=== PATIENT | male | born 1995 | race Caucasian/White ===

== ENCOUNTER 2016-05-01 20:04 | Emergency (ER) | payer BC ==
[2016-05-01] MEDS ORDERED: 0.9 % SODIUM CHLORIDE 1,000 ML BAG IV ONE (20:38)
[2016-05-01] MEDS ORDERED: ONDANSETRON HCL IV 4 MG/2 ML VIAL IV ONE (20:38)
--- NOTE | 2016-05-01 20:44 | Emergency Department Record ---
History of Present Illness - General Chief Complaint: Abdominal Pain Stated Complaint: ABD PAINS Time Seen by Provider: 05/01/16 20:38 Source: Patient Mode of Arrival: Ambulatory Limitations: No limitations - History of Present Illness Initial Comments: 20 yo male presents with abdominal discomfort, nausea and loose stools this week. The pain comes and goes. It seems to be mostly on the right side in the upper abdomen. No fevers. No rash. He has pain with eating. No surgical history. No hematuria. He denies vomiting. MD Complaint: Abdominal pain Onset/Timin -: Days(s) Location: RUQ Radiation: RLQ Migration to: No migration Quality: Burning Consistency: Intermittent, Getting worse Improves With: Nothing Worsens With: Eating Associated Symptoms: Diarrhea, Nausea - Related Data Previous Rx's Medication Instructions Recorded Ondansetron [Zofran Odt] 4 mg PO Q8H #10 tab.rapdis 05/01/16 Allergies Allergy/AdvReac Type Severity Reaction Status Date / Time codeine AdvReac ABDOMINAL Verified 02/12/14 22:47 PAIN Travel Screening - Travel/Exposure Within Last 30 Days Have you traveled within the last 30 days?: No - Travel Symptoms Symptom Screening: None Review of Systems Constitutional: Reports: Chills, Malaise. Denies: Fever, Night sweats, Weakness Eyes: Denies: Eye discharge, Eye pain, Photophobia, Vision change ENT: Denies: Congestion, Epistaxis, Throat pain Respiratory: Denies: Cough, Dyspnea, Hemoptysis, Stridor Cardiovascular: Denies: Chest pain, Palpitations, Syncope Endocrine: Denies: Fatigue Gastrointestinal: Reports: As per HPI, Abdominal pain, Diarrhea, Nausea. Denies : Constipation, Hematemesis, Hematochezia, Melena, Vomiting Genitourinary: Denies: Dysuria, Frequency, Hematuria Musculoskeletal: Denies: Arthralgia, Back pain, Joint swelling, Myalgia, Neck pain Skin: Denies: Bruising, Change in color, Rash Neurological: Denies: Confusion, Headache Psychiatric: Denies: Anxiety Hematological/Lymphatic: Denies: Blood Clots, Easy bleeding, Easy bruising Past Medical History - SOCIAL HISTORY Smoking Status: Light tobacco smoker (<10/day) - RESPIRATORY Hx Respiratory Disorders: No - CARDIOVASCULAR Hx Cardio Disorders: No - NEURO Hx Neuro Disorders: No - GI Hx GI Disorders: No - Hx Genitourinary Disorders: No - ENDOCRINE Hx Endocrine Disorders: No - MUSCULOSKELETAL Hx Musculoskeletal Disorders: No - PSYCH Hx Psych Problems: No - HEMATOLOGY/ONCOLOGY Hx Hematology/Oncology Disorders: No Family Medical History Any Significant Family History?: Yes Family Hx Comment (NOT TO BE USED IN PLACE OF ITEMS BELOW): Grandmother w/ALS- Physical Exam - General General Appearance: Alert, Oriented x3, Cooperative, No acute distress Limitations: No limitations - Head Head exam: Normal inspection - Eye Eye exam: Normal appearance, PERRL. negative: Conjunctival injection, Scleral icterus - ENT ENT exam: Normal exam, Mucous membranes moist, Normal external ear exam, Normal orophraynx Ear exam: Normal external inspection. negative: External canal tenderness Nasal Exam: Normal inspection. negative: Discharge, Sinus tenderness Mouth exam: Normal external inspection, Tongue normal Teeth exam: Normal inspection. negative: Dental caries Throat exam: Normal inspection. negative: Tonsillar erythema, Tonsillar exudate - Neck Neck exam: Normal inspection, Full ROM. negative: Tenderness - Respiratory Respiratory exam: Normal lung sounds bilaterally. negative: Respiratory distress - Cardiovascular Cardiovascular Exam: Regular rate, Normal rhythm, Normal heart sounds - GI/Abdominal GI/Abdominal exam: Soft, Tenderness. negative: Distended, Guarding, Rebound, Rigid - Rectal Rectal exam: Deferred - exam: Deferred - Extremities Extremities exam: Normal inspection, Full ROM, Normal capillary refill. negative: Tenderness - Back Back exam: Reports: Normal inspection, Full ROM. Denies: Muscle spasm, Rash noted, Tenderness - Neurological Neurological exam: Alert, Normal gait, Oriented X3, Reflexes normal - Psychiatric Psychiatric exam: Normal affect, Normal mood - Skin Skin exam: Dry, Intact, Normal color, Warm Course Vital Signs 05/01/16 20:23 Temperature 97.9 F Pulse Rate 73 Respiratory 18 Rate Blood Pressure 140/79 Pulse Ox 98 - Reevaluation(s) Reevaluation #1: The labs were reviewed No acute changes 05/01/16 21:31 Reevaluation #2: CT report from [facility] reviewed. No acute process. The results were discussed with the patient [facility] follow up recommendations 05/01/16 23:21 Medical Decision Making - Lab Data Result diagrams: 05/01/16 21:00 05/01/16 21:00 Disposition Disposition: Discharge Clinical Impression: Abdominal pain Qualifiers: Abdominal location: right lower quadrant Qualified Code(s): R10.31 - Right lower quadrant pain Nausea and vomiting Qualifiers: Vomiting type: unspecified Vomiting Intractability: non-intractable Qualified Code(s): R11.2 - Nausea with vomiting, unspecified Disposition: Home, Self-Care Condition: (1) Good Instructions: Abdominal Pain (ED) Additional Instructions: Return to the ER if you have any return of pain Return immediately if you have fever, uncontrolled pain or vomiting Prescriptions: Ondansetron [Zofran Odt] 4 mg PO Q8H #10 tab.rapdis Referrals: LISS LUI M.D. [MEDICAL DOCTOR] - Forms: Patient Portal Access Time of Disposition: 23:31
[2016-05-01 21:07] LABS: BASO % 0.3 % (0-6); EOS % 0.5 % (0-6); GRAN % 65.3 % (47-80); HEMATOCRIT 45.1 % (42.0-52.0); HEMOGLOBIN 16.1 gm/dl (14.0-18.0); LYMPH % 24.2 % (16-45); MEAN CELL VOLUME 86.1 fl (81-97); MEAN CORPUSCULAR HEMOGLOBIN 30.7 pg (27-33); MEAN CORPUSCULAR HGB CONC 35.7 g/dl (32-36); MEAN PLATELET VOLUME 9.2 fl (7.4-10.4); MONO % 9.7 % (0-9); PLATELET COUNT 288 K/uL (130-400); RED BLOOD COUNT 5.24 M/uL (4.40-5.70); WHITE BLOOD COUNT W/O DIFF 9.3 K/uL (4.2-12.2)
[2016-05-01 21:17] LABS: ALBUMIN 5.1 gm/dL (3.5-5.0); ALKALINE PHOSPHATASE 63 U/L (38-126); ALT/SGPT 54 U/L (21-72); ANION GAP 15.5 (7-16); AST/SGOT 38 U/L (17-59); BILIRUBIN,TOTAL 0.67 mg/dL (0.2-1.3); BLOOD UREA NITROGEN 14 mg/dL (9-20); CARBON DIOXIDE 26.5 mmol/L (22-30); CREATININE 0.9 mg/dL (0.66-1.25); EST GLOMERULAR FILTRATION RATE > 60 ml/min; GLUCOSE,RANDOM 94 mg/dL (70-110); LIPASE 62 U/L (23-300)
[2016-05-01] MEDS ORDERED: ONDANSETRON 4 MG ODT TABLET SL ONE (23:31)
--- NOTE | 2016-05-07 10:24 | CT SCAN REPORT ---
EXAM: EMERGENCY CT OF THE ABDOMEN AND PELVIS WITH CONTRAST HISTORY: RIGHT SIDED ABDOMINAL PAIN, STARTED IN STOMACH EARLIER THIS WEEK, GETTING WORSE. SOME NAUSEA, BUT NO VOMITING. TECHNIQUE: Axial CT scan of the abdomen and pelvis was performed following both oral and IV contrast media administration. A dose of 100 ml of Omnipaque 300 was utilized for the IV contrast. A preliminary report was provided by [facility]. Comparison: CT of the abdomen and pelvis dated 11/19/14. FINDINGS: No calcified gallstones are seen within the gallbladder. No definite hepatic, splenic, adrenal, pancreatic, or renal mass identified. There are likely a couple small accessory spleens just medial to the spleen itself also present previously. The appendix is visualized and appears negative. There is a small periumbilical anterior abdominal wall hernia containing adipose tissue, but no bowel. The lung bases appear clear. No free intraperitoneal air or free intraperitoneal fluid evident. IMPRESSION: 1. VERY SMALL PERIUMBILICAL ANTERIOR ABDOMINAL WALL HERNIA CONTAINING ADIPOSE TISSUE, BUT NO BOWEL. 2. THERE ARE PROBABLY A COUPLE SMALL ACCESSORY SPLEENS IN THE LEFT UPPER QUADRANT ALSO PRESENT ON 11/19/14. 3. THE REMAINDER OF THE CT APPEARS ESSENTIALLY NEGATIVE. NO APPENDICITIS EVIDENT. NO FREE AIR OR FREE FLUID EVIDENT. JOB NUMBER: [id number] MTDD
== END 2016-05-01 23:44 | disposition home or self-care (01) ==
LOC: ER 20:04
DX: R10.31 Right lower quadrant pain (principal); R11.0 Nausea; R19.7 Diarrhea, unspecified
CPT/HCPCS: 99284 ×2; 96374; 83690; 85025; 80076; 80048; 74177; Q9967; J2405; J7030